=== PATIENT | male | born 1950 | race Caucasian/White ===

== ENCOUNTER → 2020-12-19 | Outpatient (REF) | payer MEDICARE, OTHER ==
[~2020-12-19] MED LIST: CALC600T57 PO; CETI10CH PO; CETI1SYP16 PO; COQ-100C2 PO; GLUC1CAP10 PO; MAGN500C PO; MELO15TA28 PO; OLME5TAB PO; OMEG12004 PO; RHOP0.02 OP
== END ==
LOC: M LAB REF 17:13
PROVIDERS: ATTEND Physician Assistant
DX: D22.5 Melanocytic nevi of trunk (principal)
CPT/HCPCS: 11102; 11103; 88305; G0463

== ENCOUNTER → 2021-05-21 | Outpatient (CLI) | payer MEDICARE, BC, OTHER ==
--- NOTE | 2021-05-22 16:18 | SLEEPHOME ---
DATE: 05/21/2021 ORDERED BY: Dr. Mahmood Diagnostic home sleep testing was performed due to concern for the obstructive sleep apnea syndrome ini this patient with a history of snoring. For testing, a Niox T3 respiratory monitoring device was used. Continuous record was made of pulse, oxygen saturation, air flow, chest and abdominal strain, and body position. There was 9 hours and 59 minutes of data reviewed. During this interval, 116 respiratory events were identified of 10 seconds in duration or greater for a respiratory event index of 11.7. The events were more frequently obstructive, but 26 mixed and central apneas were also identified. The patient's baseline pulse rate and saturation are unable to be reported, as the probe became dislodged early in the study. Testing was performed in both the supine and nonsupine positions. IMPRESSION: Abnormal home sleep testing with repetitive respiratory events and respiratory event index of 11.7 is consistent with the obstructive sleep apnea syndrome. RECOMMENDATION: The patient should be encouraged to undergo formal sleep evaluation.
== END ==
LOC: M SLEEP HO 10:20
PROVIDERS: ATTEND Internal Medicine Cardiovascular Disease
DX: G47.33 Obstructive sleep apnea (adult) (pediatric) (principal)

== ENCOUNTER → 2021-12-23 | Outpatient (REF) | payer MEDICARE, BC, OTHER ==
[~2021-12-23] MED LIST changes: +AMLO1TAB25 PO; +ASPI81TA26 PO; +COQ-100C5 PO; +IRBE150T7 PO; +IRON65TA2 PO; +MAGN500T2 PO; +OMEP40CA4 PO; +ROSU10TA6 PO; +VITA100091 PO; +VITA100093 PO; +VITATAB73 PO; +VITMTA PO
== END ==
LOC: M SFHCDERM 14:04
PROVIDERS: ATTEND Physician Assistant
DX: D22.5 Melanocytic nevi of trunk (principal)
CPT/HCPCS: 11102; 88305; G0463

== ENCOUNTER 2022-01-02 11:51 | Day surgery (SDC) | payer MEDICARE, BC, OTHER ==
[~2022-01-02] VITALS: Ht 180.3 cm; Wt 87.1 kg
[~2022-01-02 11:51] MED LIST changes: +LIDOCAINE 1% SDV 30ML VIAL As Ordered ONE; +LR 1,000 ML IV ONE; +ceFAZolin SOD 1 GM in D5W MINI-BAG PLUS 50 ML IV ONE
[2022-01-02] MEDS ORDERED: MUPIROCIN 2% OINT 22 GM TUBE As Ordered ONE (14:41)
[2022-01-02 14:55] VITALS: BP 165/92
== END 2022-01-02 15:06 | disposition home or self-care (01) ==
LOC: M SDC 11:51
PROVIDERS: ATTEND Internal Medicine Cardiovascular Disease
DX: I48.0 Paroxysmal atrial fibrillation (principal); I47.2 Ventricular tachycardia; I10 Essential (primary) hypertension; E78.2 Mixed hyperlipidemia; R06.83 Snoring; J30.2 Other seasonal allergic rhinitis; G47.9 Sleep disorder, unspecified; R94.31 Abnormal electrocardiogram [ECG] [EKG]; Z85.46 Personal history of malignant neoplasm of prostate; K21.9 Gastro-esophageal reflux disease without esophagitis
CPT/HCPCS: 33285; C1764; J0690

== ENCOUNTER → 2022-06-26 | Outpatient (REF) | payer MEDICARE, OTHER ==
[~2022-06-26] MED LIST changes: -LIDOCAINE 1% SDV 30ML VIAL As Ordered ONE; -LR 1,000 ML IV ONE; -OLME5TAB PO; +OLME5TAB24 PO; -ceFAZolin SOD 1 GM in D5W MINI-BAG PLUS 50 ML IV ONE
== END ==
LOC: M SFHCDERM 13:54
PROVIDERS: ATTEND Physician Assistant
DX: D03.61 Melanoma in situ of right upper limb, including shoulder (principal)

== ENCOUNTER → 2022-08-08 | Outpatient (REF) | payer MEDICARE, OTHER | LOC: M SFHCDERM 12:26 | PROVIDERS: ATTEND Dermatology | DX: L90.5 Scar conditions and fibrosis of skin (principal) ==